=== PATIENT | female | born 1940 | race Caucasian/White ===

== ENCOUNTER → 2018-12-03 | Outpatient (CLI) | payer MEDICARE, OTHER ==
[~2018-12-03] MED LIST: LANTUS100 UNIT/M SUBQ; NOVOLOG100 UNIT/1 SUBQ; VITAMIN D1000 UNI1 PO; VITAMIN E400 UNIT PO; ZOCOR20 MG PO
== END ==
LOC: M.RAD 14:12
DX: M47.896 Other spondylosis, lumbar region (principal); I25.10 Atherosclerotic heart disease of native coronary artery without angina pectoris; M43.16 Spondylolisthesis, lumbar region; W19.XXXA Unspecified fall, initial encounter

== ENCOUNTER → 2020-03-31 | Outpatient (CLI) | payer MEDICARE, OTHER ==
[~2020-03-31] MED LIST changes: +HYDROCODON-ACE1 EAC7 PO; +KLOR-CON M2020 MEQ PO; +MELOXICAM15 MG PO; +MICARDIS 80 MG80 MG PO; +OXYBUTYNIN 5 MG5 M2 PO; +PANTOPRAZOLE SO40 M1 PO
== END ==
LOC: M.ULTRA 15:00
DX: M79.605 Pain in left leg (principal); M79.604 Pain in right leg

== ENCOUNTER 2020-04-01 15:18 | Emergency (ER) | payer MEDICARE, OTHER ==
[~2020-04-01] VITALS: Ht 149.9 cm; Wt 64.9 kg
[~2020-04-01 15:18] MED LIST changes: -HYDROCODON-ACE1 EAC7 PO; -KLOR-CON M2020 MEQ PO; -MELOXICAM15 MG PO; -MICARDIS 80 MG80 MG PO; -OXYBUTYNIN 5 MG5 M2 PO; -PANTOPRAZOLE SO40 M1 PO
[2020-04-01] MEDS ORDERED: MICARDIS 80 MG80 MG PO (15:35)
[2020-04-01] MEDS ORDERED: MELOXICAM15 MG PO (15:35)
[2020-04-01] MEDS ORDERED: PANTOPRAZOLE SO40 M1 PO (15:35)
[2020-04-01] MEDS ORDERED: OXYBUTYNIN 5 MG5 M2 PO (15:36)
[2020-04-01] MEDS ORDERED: KLOR-CON M2020 MEQ PO (15:36)
[2020-04-01 16:41] LABS: ABSOLUTE EOSINOPHILS 0.1 thou/uL (0.0-0.7); ABSOLUTE LYMPHOCYTES 1.6 thou/uL (0.8-5.3); ABSOLUTE MONOCYTES 0.4 thou/uL (0.0-1.2); ABSOLUTE NEUTROPHILS 3.1 thou/uL (1.6-8.1); BASOPHILS 0.9 %; EOSINOPHILS 2.4 %; HEMATOCRIT 37.1 % (37.0-47.0); HEMOGLOBIN 13.3 gm/dL (12.0-15.0); MCH 31.2 pg (26.0-34.0); MCHC 35.8 g/dL (28.0-37.0); MCV 87.3 fL (80.0-100.0); NUCLEATED RBCS 0 /100WBC; PLATELET COUNT* 176 thou/uL (150-400); POLYS 58.7 %; RBC 4.25 mil/uL (4.20-5.00); RDW-CV 12.9 % (10.5-14.5); WBC 5.2 thou/uL (4.0-11.0)
[2020-04-01 16:52] LABS: CALCIUM 9.5 mg/dL (8.5-10.1); CREATININE 1.4 mg/dL (0.6-1.3); POTASSIUM 4.9 mmol/L (3.5-5.1)
[2020-04-01 16:53] LABS: APTT 23.9 Seconds (25.0-31.3)
[2020-04-01 16:56] LABS: ALBUMIN 3.5 g/dL (3.4-5.0); TOTAL BILIRUBIN 0.5 mg/dL (<0.1-1.0); TOTAL PROTEIN 7.3 g/dL (6.4-8.2)
[2020-04-01] MEDS ORDERED: HYDROCODON-ACE1 EAC7 PO (18:58)
[2020-04-01 19:16] VITALS: BP 125/51
== END 2020-04-01 19:17 | disposition home or self-care (01) ==
LOC: M.ERS 15:18
PROVIDERS: Personal Emergency Response Attendant
DX: M79.651 Pain in right thigh (principal); M25.551 Pain in right hip; E11.9 Type 2 diabetes mellitus without complications; Z90.49 Acquired absence of other specified parts of digestive tract; Z91.048 Other nonmedicinal substance allergy status